=== PATIENT | male | born 1975 | race Two or more races ===

== ENCOUNTER 2020-08-16 16:53 | Emergency (ER) | payer MEDICAID ==
[~2020-08-16] VITALS: Ht 188 cm; Wt 75.0 kg
[2020-08-16 18:11] LABS: CHLORIDE 106 mEq/L (98-107)
[2020-08-16 18:21] LABS: BASOPHILS % 0.3 % (0.0-2.0); EOSINOPHILS % 0.6 % (0.0-5.0); HEMOGLOBIN. 14.8 g/dL (14.0-18.0); LYMPHOCYTES % 15.2 % (20.0-50.0); MEAN CORPUSCULAR HEMOGLOBIN 31.1 pg (28.0-32.0); MEAN CORPUSCULAR VOLUME 87.9 fL (80.0-94.0); MEAN PLATELET VOLUME 7.9 fl (7.4-10.4); MONOCYTES % 4.2 % (2.0-8.0); NEUTROPHILS % 79.7 % (40.0-76.0); PLATELET 235 x1000/uL (130-400); RED BLOOD CELL COUNT 4.78 mill/uL (4.7-6.1); RED CELL DISTRIBUTION WIDTH 12.9 % (11.6-14.6)
[2020-08-16 19:00] VITALS: BP 114/74
== END 2020-08-16 19:30 | disposition home or self-care (01) ==
LOC: ER 16:53
DX: R53.1 Weakness (principal); I24.9 Acute ischemic heart disease, unspecified
CPT/HCPCS: 36415; 80053; 84484; 85025; 93005; 99284